=== PATIENT | female | born 1970 | race Two or more races ===

== ENCOUNTER → 2018-02-16 | Emergency (ER) | payer OTHER ==
[~2018-02-16] VITALS: Ht 152.4 cm; Wt 63.5 kg
[~2018-02-16] MED LIST: IPRAT-ALBUT 0.5-3 ML IH; MEDROLPACK PO; MUCINEX DM ER1 EAC1 PO; TESSALON PERLE100 MG PO; VENTOLIN HFA18 GM IH; ZITHROMAX500 MG PO
== END | disposition home or self-care (01) ==
LOC: ER 01:22
DX: J06.9 Acute upper respiratory infection, unspecified (principal); J04.0 Acute laryngitis

== ENCOUNTER 2018-11-23 14:47 | Emergency (ER) | payer OTHER ==
[~2018-11-23] VITALS: Ht 165.1 cm; Wt 66.7 kg
== END 2018-11-23 22:15 | disposition home or self-care (01) ==
LOC: ER 14:47
DX: J20.8 Acute bronchitis due to other specified organisms (principal)